=== PATIENT | male | born 1965 | race Caucasian/White ===

== ENCOUNTER → 2024-10-14 | Day surgery (SDC) | payer BC ==
[~2024-10-14] MED LIST: B12; BACLOFEN10 MG PO; BUPIVACAINE 0.25% 30ML SDV ONE; COQ-10100 MG; DAILY VALUE1 EACH; DEXAMETHASONE SOD PHOS INJ 4 MG/ML SDV ONE; EPHEDRINE SULFATE INJ 50 MG/ML VIAL ONE; FENTANYL CITRATE/PF 100MCG/2 ML INJ ONE; FISH OIL 1,0001 EAC7; FLOMAX0.4 MG PO; GABAPENTIN300 MG/6 M; HYDROCODONE-AC473 M1; HYDROCODONE/APAP 10MG-325MG TAB ONE; LEFLUNOMIDE20 MG; LIDOCAINE HCL 2% LOCAL INJ 5 ML SDV VIAL INJ ONE; MELOXICAM15 MG; MIDAZOLAM HCL 2 MG/2 ML VIAL ONE; MIDAZOLAM HCL 5 MG/ML VIAL ONE; NEXLIZET 180-11 EACH; OMEPRAZOLE40 MG PO; ONDANSETRON HCL INJ 2MG/ML 2ML 2 MG/ML VIAL ONE; PROPOFOL IV EMULSION 10 MG/ML 20 ML VIAL ONE; TESTOSTERONE5 GM TOP
[2024-10-14] MEDS: CEFAZOLIN SODIUM 2 GM ONE (08:00)
[2024-10-14] MEDS: LACTATED RINGER'S 1,000 ML ONE (08:00)
[2024-10-14 09:57] VITALS: TEMP 97.5
[2024-10-14] MEDS: HYDROCODONE/APAP 10MG-325MG TAB PO ONE (10:28)
[2024-10-14 10:45] VITALS: BP 107/72; PULSE 80; RESP 16; O2SAT 97
== END | disposition home or self-care (01) ==
LOC: OR 07:02
PROVIDERS: ATTEND Orthopaedic Surgery
DX: S83.232A Complex tear of medial meniscus, current injury, left knee, initial encounter (principal); M84.453A Pathological fracture, unspecified femur, initial encounter for fracture; S83.282A Other tear of lateral meniscus, current injury, left knee, initial encounter; M22.42 Chondromalacia patellae, left knee; M65.162 Other infective (teno)synovitis, left knee; M23.42 Loose body in knee, left knee; M67.52 Plica syndrome, left knee; E78.5 Hyperlipidemia, unspecified; K21.9 Gastro-esophageal reflux disease without esophagitis; F17.200 Nicotine dependence, unspecified, uncomplicated; X58.XXXA Exposure to other specified factors, initial encounter; Z88.0 Allergy status to penicillin; Z79.1 Long term (current) use of non-steroidal anti-inflammatories (NSAID)
CPT/HCPCS: 27599; 29881; C1713; J1100; J2003; J2250; J2405; J2704; J3010; J7121; 76000